=== PATIENT | female | born 1985 | race Caucasian/White ===

== ENCOUNTER 2017-03-06 19:27 | Emergency (ER) | payer OTHER ==
[~2017-03-06] VITALS: Ht 177.8 cm; Wt 102.1 kg
[~2017-03-06 19:27] MED LIST: CEPH-264 PO; TRAM-29 PO
[2017-03-06 19:36] VITALS: BP 139/74
[2017-03-06] MEDS ORDERED: CHLO15MO2 PO (20:47)
[2017-03-06] MEDS ORDERED: SULF1TAB24 PO (20:47)
[2017-03-06] MEDS ORDERED: HYDR-971 PO (20:47)
--- NOTE | 2017-03-06 20:47 | PHYS DOC ---
Past Medical History Past Medical History: Other Additional Past Medical Histor: HYPOGLYCEMIA, LOW BP, GERD Past Surgical History: Appendectomy, Cholecystectomy, Other Additional Past Surgical Histo: GASTRIC SLEEVE 2015 Alcohol Use: Occasionally Drug Use: None Adult General Chief Complaint Chief Complaint: DENTAL PROBLEM [facility] HPI Patient is a 32 year old female presents emergency Department with left lower dental pain 1 week and left mandibular swelling that began approximately 3 days ago. Patient had been on amoxicillin which was prescribed by her dentist last week. Stitches take the amoxicillin for 5 days. She reported no improvement at that time so she was prescribed clindamycin. She states that she' s been taking the clindamycin for 5 days. Patient denies any fevers or chills. She has had some recent dental work done that is been superficial. She has not have any recent traveling to the side. Review of Systems Review of Systems Constitutional: Denies fever or chills [] Eyes: Denies change in visual acuity, redness, or eye pain [] HENT: Denies nasal congestion or sore throat [] Respiratory: Denies cough or shortness of breath [] Cardiovascular: No additional information not addressed in HPI [] GI: Denies abdominal pain, nausea, vomiting, bloody stools or diarrhea [] : Denies dysuria or hematuria [] Musculoskeletal: Denies back pain or joint pain [] Integument: Denies rash or skin lesions [] Neurologic: Denies headache, focal weakness or sensory changes [] Endocrine: Denies polyuria or polydipsia [] Allergies Allergies Allergies Coded Allergies Type Severity Reaction Last Updated Verified No Known Drug Allergies 10/09/16 No Physical Exam Physical Exam Constitutional: Well developed, well nourished, no acute distress, non-toxic appearance. Patient is afebrile. She has normal physiologic vital signs. HENT: Normocephalic, atraumatic, bilateral external ears normal, oropharynx moist, no oral exudates, nose normal. Patient has swelling along the left mandible with some palpable indurated tissue. There is no fluctuant pocket or overlying skin erythema or swelling. There is no heat to the touch. There is no trismus or hot potato speech. Patient's had numerous caps and fillings. The swelling is adjacent to the first left mandibular molar. Again, there is no purulent drainage, fluctuant pocket is palpable. Eyes: PERRLA, EOMI, conjunctiva normal, no discharge. [] Neck: Normal range of motion, no tenderness, supple, no stridor. There is no meningismus or cervical lymphadenopathy. Cardiovascular:Heart rate regular rhythm, no murmur [] Lungs & Thorax: Bilateral breath sounds clear to auscultation [] Abdomen: Bowel sounds normal, soft, no tenderness, no masses, no pulsatile masses. [] Skin: Warm, dry, no erythema, no rash. [] Back: No tenderness, no CVA tenderness. [] Extremities: No tenderness, no cyanosis, no clubbing, ROM intact, no edema. [] Neurologic: Alert and oriented X 3, normal motor function, normal sensory function, no focal deficits noted. [] Psychologic: Affect normal, judgement normal, mood normal. [] Current Patient Data Vital Signs Vital Signs Date Time Temp Pulse Resp B/P (MAP) Pulse Ox O2 Delivery O2 Flow Rate FiO2 03/06/17 19:36 98.9 85 16 99 Room Air 98.9 EKG EKG [] Radiology/Procedures Radiology/Procedures 4 views of the patient's mandible were performed with adequate technique. There is no evidence of periapical lucency or osteomyelitis. Course & Med Decision Making Course & Med Decision Making Pertinent Labs and Imaging studies reviewed. (See chart for details) [] Dragon Disclaimer Dragon Disclaimer This electronic medical record was generated, in whole or in part, using a voice recognition dictation system. Departure Departure Impression: Primary Impression: Periapical abscess Disposition: HOME, SELF-CARE Condition: GOOD Referrals: MICHAEL DOSS (PCP) Patient Instructions: Dental Abscess Additional Instructions: 1. The x-rays of your jaw today show no evidence of a bone infection, osteomyelitis. You have a periapical abscess causing the swelling along the jaw line. 2. Continue taking the clindamycin as prescribed. Begin taking the additional antibiotic prescribed here today as well. Use the mouthwash as prescribed. Take the pain medication as prescribed. 3. Review the discharge instructions provided for self-care and reasons to return to the emergency department. 4. Follow-up with your dentist this coming week. Scripts Chlorhexidine Gluconate (PERIDEX) 15 Ml Mouthwash 15 ML PO BID, #946 ML Rinse your mouth thoroughly for 5 minutes and spit out. Prov: KADEN RAHMAN 03/06/17 Hydrocodone/Apap 5-325 (NORCO 5-325 TABLET) 1 Each Tablet 1 TAB PO PRN Q6HRS Y for PAIN, #15 TAB 0 Refills Prov: KADEN RAHMAN 03/06/17 Sulfamethoxazole/Trimethoprim (BACTRIM DS TABLET) 1 Each Tablet 1 EACH PO BID, #20 TAB Prov: KADEN RAHMAN 03/06/17 KADEN RAHMAN March 06, 2017 20:47
--- NOTE | 2017-03-07 08:52 | RAD ---
Indication left mandibular pain and swelling. History of a tooth extraction on the left side a month earlier. 4 films, targeted to the mandible, were obtained. No bony abnormality is seen
== END 2017-03-06 20:53 | disposition home or self-care (01) ==
LOC: ER 19:27
DX: K04.7 Periapical abscess without sinus (principal); K21.9 Gastro-esophageal reflux disease without esophagitis; Z90.49 Acquired absence of other specified parts of digestive tract
CPT/HCPCS: 70110; 99284